=== PATIENT | male | born 1965 | race Caucasian/White ===

== ENCOUNTER 2019-09-20 18:15 | Inpatient (IN) | payer MEDICAID, SELFPAY ==
[~2019-09-20] VITALS: Ht 165.1 cm; Wt 113.4 kg
[2019-09-20 18:28] VITALS: BP 157/77
--- NOTE | 2019-09-20 20:48 | NUR ---
COVID SWAB COLLECTED AND SENT TO LAB.
--- NOTE | 2019-09-20 21:08 | NUR ---
PT O2SAT DROPPED DOWN TO 78% WHEN AMBULATING TO ER BED 07. [facility] CHOWDARY MADE AWARE.
--- NOTE | 2019-09-20 21:09 | NUR ---
PT BROUGHT TO BED 07 FOR XR.
--- NOTE | 2019-09-20 21:20 | NUR ---
PT TRANSFERRED TO BED 02.
--- NOTE | 2019-09-20 21:20 | NUR ---
54 Y/O MALE C/O COUGH, FEVER AND HEADACHE X 7 DAYS. O2 SATURATION 85%, PT PLACED ON NASAL CANNULA 5LPM. PT STATES RECENT EXPOSURE TO COVID POSITIVE PATIENT. PMH: NONE NKA
--- NOTE | 2019-09-20 21:55 | NUR ---
PT REFUSING COVID SWAB. ERMD AWARE AND AT BEDSIDE.
[2019-09-20] MEDS ORDERED: ASPI-1205 PO (22:14)
[2019-09-20 22:23] LABS: BASOPHILS % (AUTO) 0.7 % (0.0-2.0); EOSINOPHILS % (AUTO) 0.3 % (0.0-4.0); HEMATOCRIT 39.7 % (36-52); HEMOGLOBIN 12.9 g/dL (12.0-18.0); LYMPHOCYTES # (AUTO) 1.3 K/uL (2.0-11.5); MEAN CORPUSCULAR HEMOGLOBIN 29 pg (27-31); MEAN CORPUSCULAR HGB CONC 33 g/dL (33-37); MEAN CORPUSCULAR VOLUME 89.4 fL (80-94); MONOCYTES # (AUTO) 0.7 K/uL (0.8-1.0); MONOCYTES % (AUTO) 11.2 % (1.7-9.3); NEUTROPHILS # (AUTO) 3.8 K/uL (1.8-7.7); NEUTROPHILS % (AUTO) 64.8 % (42.2-75.2); PLATELET COUNT (AUTO) 359 K/uL (140-450); RED BLOOD CELL COUNT(AUTO) 4.44 MIL/uL (4.20-6.10); RED CELL DISTRIBUTION WIDTH 12.6 % (11.6-13.7); WHITE BLOOD COUNT (AUTO) 5.9 K/uL (4.8-10.8)
--- NOTE | 2019-09-20 22:27 | NUR ---
RT AT BEDSIDE.
[2019-09-20] MEDS ORDERED: ACETAMINOPHEN 325 MG TAB PO PRN (22:40)
[2019-09-20] MEDS ORDERED: HYDROcodone/APAP 7.5/325 MG 1 TAB PO PRN (22:40)
[2019-09-20] MEDS ORDERED: ONDANSETRON 4 MG/2 ML VIAL IVP PRN (22:40)
[2019-09-20 22:58] LABS: CARBON DIOXIDE 32.7 mmol/L (21-32); CREATININE 1.1 mg/dL (0.6-1.3); POTASSIUM 3.7 mmol/L (3.5-5.1); TOTAL BILIRUBIN 0.6 mg/dL (0.0-1.0)
[2019-09-20 23:17] LABS: C-REACTIVE PROTEIN QUANT 22.8 mg/dL (0.0-0.9)
--- NOTE | 2019-09-20 23:32 | NUR ---
URINE TAKEN TO LAB AT THIS TIME.
[2019-09-20 23:41] LABS: FREE T4 (FREE THYROXINE) 1.09 ng/dL (0.76-1.46); PHOSPHORUS 4.2 mg/dL (2.5-4.9); THYROID STIMULATING HORMONE 3.33 uIU/mL (0.34-3.74)
[2019-09-20 23:52] LABS: BILIRUBIN,URINE NEGATIVE (NEGATIVE); BLOOD, URINE TRACE-I (NEGATIVE); LEUKOCYTE ESTERASE ,URINE NEGATIVE (NEGATIVE); NITRITE, URINE NEGATIVE (NEGATIVE); UGLUCOSE NEGATIVE (NEGATIVE)
[2019-09-20 23:55] LABS: APPEARANCE,URINE YELLOW (CLEAR); COLOR,URINE CLEAR (YELLOW)
[2019-09-21] LABS: BARBITURATE, URINE NEGATIVE ng/ml (NEG <=200); BENZODIAZEPINE, URINE NEGATIVE ng/mL (NEG <=200); CANNABINOID, URINE NEGATIVE ng/mL (NEG <=50); COCAINE, URINE NEGATIVE ng/mL (NEG <=300); OPIATE, URINE NEGATIVE ng/mL (NEG <=2000); PHENCYCLIDINE SCREEN,URINE NEGATIVE ng/mL (NEG <=25)
--- NOTE | 2019-09-21 00:30 | NUR ---
PT LAYING IN BED COMFORTABLY. NO RESP DISTRESS NOTED. EQUAL CHEST RISE AND FALL.
--- NOTE | 2019-09-21 01:40 | NUR ---
PT LAYING IN BED COMFORTABLY. NO RESP DISTRESS NOTED. EQUAL CHEST RISE AND FALL.
[2019-09-21 01:58] LABS: LACTATE DEHYDROGENASE 414 U/L (85-227)
--- NOTE | 2019-09-21 03:58 | NUR ---
PT LAYING IN BED COMFORTABLY. NO RESP DISTRESS NOTED. EQUAL CHEST RISE AND FALL. ON 5 L NASAL CANNULA. O2 SATURATION 97%.
--- NOTE | 2019-09-21 05:30 | NUR ---
PT REQUESTING FOR WATER. PER CONCHA OKAY TO GIVE. WATER PROVIDED. PT TOLERATED WELL.
--- NOTE | 2019-09-21 06:40 | NUR ---
PT LAYING IN BED COMFORTABLY. NO RESP DISTRESS NOTED. EQUAL CHEST RISE AND FALL. ON 5 L NASAL CANNULA. O2 SATURATION 94%
--- NOTE | 2019-09-21 07:10 | NUR ---
PATIENT WHEELED TO FLOOR BY PERSONAL PROPERTY ASSESSOR. PATIENT AMBULATED TO BED ON STEADY GAIT WITH STANDBY ASSIST. PATIENT O2 SATURATION 95% ON 5L O2 VIA NC. NO S/S OF SOB OR DISTRESS NOTED. PT DENIES PAIN. ORIENTED PATIENT TO FLOOR BATHROOM, CALL LIGHT, AND TV. UPDATED BOARD. VERBALIZED PLAN OF CARE WITH PATIENT, HE VERBALIZED UNDERSTANDING. PT DX PNA, R/O COVID, DROPLET PRECAUTIONS IN PLACE, CALL LIGHT WITHIN REACH, WILL CONTINUE TO MONITOR PATIENT.
--- NOTE | 2019-09-21 07:10 | NUR ---
Patient will be admitted to care of DR. LESLIE. Admited to TELE. Will go to room 116. Belongings list completed. Report to [facility] L[facility].
--- NOTE | 2019-09-21 07:21 | NUR ---
PATIENT HAS BEEN SCREENED AND CATEGORIZED MODERATE NUTRITION RISK. PATIENT WILL BE SEEN WITHIN 3-5 DAYS OF ADMISSION. 09/23/19-09/25/19 GAVIN BURTON MS, RDN
[2019-09-21 07:30] VITALS: BP 125/61
[2019-09-21 08:55] LABS: BASOPHILS % (AUTO) 0.4 % (0.0-2.0); EOSINOPHILS % (AUTO) 0.6 % (0.0-4.0); HEMATOCRIT 40.5 % (36-52); HEMOGLOBIN 13.5 g/dL (12.0-18.0); LYMPHOCYTES # (AUTO) 1.2 K/uL (2.0-11.5); LYMPHOCYTES % (AUTO) 18.1 % (20.5-51.1); MEAN CORPUSCULAR HEMOGLOBIN 30 pg (27-31); MEAN CORPUSCULAR HGB CONC 33 g/dL (33-37); MEAN CORPUSCULAR VOLUME 89.7 fL (80-94); MONOCYTES # (AUTO) 0.5 K/uL (0.8-1.0); MONOCYTES % (AUTO) 8.4 % (1.7-9.3); NEUTROPHILS # (AUTO) 4.8 K/uL (1.8-7.7); NEUTROPHILS % (AUTO) 72.5 % (42.2-75.2); PLATELET COUNT (AUTO) 390 K/uL (140-450); RED BLOOD CELL COUNT(AUTO) 4.51 MIL/uL (4.20-6.10); RED CELL DISTRIBUTION WIDTH 12.6 % (11.6-13.7); WHITE BLOOD COUNT (AUTO) 6.6 K/uL (4.8-10.8)
[2019-09-21] MEDS ORDERED: DOCUSATE SODIUM 100 MG GELCAP PO SCH (09:00)
[2019-09-21 09:39] LABS: CARBON DIOXIDE 32.9 mmol/L (21-32); POTASSIUM 3.9 mmol/L (3.5-5.1)
[2019-09-21 09:46] LABS: CHOL/HDL RATIO 5.9 (1-4.5)
[2019-09-21] MEDS ORDERED: ONDANSETRON 4 MG/2 ML VIAL IVP PRN (09:55)
[2019-09-21] MEDS ORDERED: LORazepam 2 MG/ML VIAL IVP PRN (09:55)
[2019-09-21] MEDS ORDERED: POTASSIUM CHLORIDE 10 MEQ TABER PO PRN (09:55)
[2019-09-21] MEDS ORDERED: MORPHINE SULFATE 2 MG/ML SYR IVP PRN (09:55)
[2019-09-21] MEDS ORDERED: ACETAMINOPHEN 325 MG TAB PO PRN (09:55)
[2019-09-21] MEDS ORDERED: DOCUSATE SODIUM 100 MG GELCAP PO PRN (09:55)
[2019-09-21] MEDS ORDERED: MAG SULF 2000 MG/WATER PREMIX 50 ML IV PRN (09:55)
[2019-09-21] MEDS ORDERED: ZOLPIDEM 10 MG TAB PO PRN (09:55)
[2019-09-21] MEDS: CHOLECALCIFEROL 1,000 IU TAB PO SCH (10:06)
[2019-09-21] MEDS: ZINC SULF 220 MG CAP PO SCH (10:06)
[2019-09-21] MEDS: DEXAMETHASONE 4 MG TAB PO SCH (10:06)
[2019-09-21] MEDS: ASCORBIC ACID 500 MG TAB PO SCH (10:07)
[2019-09-21] MEDS: ENOXAPARIN 80 MG/0.8 ML SYR SUBQ SCH (10:11)
--- NOTE | 2019-09-21 10:11 | NUR ---
ORDERED MEDICATIONS GIVEN. PATIENT TOLERATED THEM WELL. PATIENT HAS NO COMPLAINTS AT THIS TIME. WILL CONTINUE TO MONITOR PATIENT.
[2019-09-21 10:34] LABS: MAGNESIUM 2.1 mg/dL (1.8-2.4); PHOSPHORUS 4.4 mg/dL (2.5-4.9)
[2019-09-21 11:30] VITALS: BP 120/64
--- NOTE | 2019-09-21 14:35 | NUR ---
PATIENT MOVED TO ROOM 106B FROM 116, PATIENT TOOK ALL HIS BELONGINGS WITH HIM. PATIENT IN STABLE CONDITION. ORIENTED HIM TO NEW ROOM, PATIENT HAD NO COMPLAINTS.
--- NOTE | 2019-09-21 15:10 | NUR ---
PATIENT O2 SATURATION 95% ON 5L O2 VIA NC. PATIENT AGREEABLE TO WEANING. O2 DECREASED TO 4L, O2 SATURATION 93-94% AT THIS TIME. PT HAS NO COMPLAINTS OF SOB OR DISTRESS. WILL CONTINUE TO MONITOR PATIENT.
[2019-09-21 15:15] VITALS: BP 127/68
--- NOTE | 2019-09-21 16:05 | NUR ---
PATIENT O2 SATURATION 94% ON 4L O2 VIA NC. PATIENT AGREEABLE TO WEANING. O2 DECREASED TO 3L, O2 SATURATION 93-94% AT THIS TIME. PT HAS NO COMPLAINTS OF SOB OR DISTRESS. WILL CONTINUE TO MONITOR PATIENT.
[2019-09-21 19:49] VITALS: BP 141/72
--- NOTE | 2019-09-21 19:53 | NUR ---
RECEIVED PATIENT ALERT, AWAKE, ORIENTED, ABLE TO MAKE NEEDS KNOWN, SKIN WARM TO TOUCH RESP. EVEN AND UNLABORED, ON 5LNC O2 SAT 92, PATIENT WATCHING TV AT THIS TIME, HEPLOCK ON LEFT WRIST, SKIN INTACT, CALL LIGHT WITHIN EASY REACH.
--- NOTE | 2019-09-21 20:02 | NUR ---
WARM WATER GIVEN TO THE PATIENT AND INCENTIVE SPIROMETER, PATIENT COOPERATIVE, WITH SLIGHT DRY COUGH, PATIENT TOLERATE DOING HIS INCENTIVE SPIROMETER, WILL CHECK PT AGAIN LATER.
--- NOTE | 2019-09-21 23:24 | NUR ---
PATIENT SLEEPING, NO URINE AVAILABLE FOR COLLECTION AT THIS TIME, WILL CHECK AGAIN LATER.
[2019-09-22] VITALS (7 sets, daily range): BP systolic 112–147; BP diastolic 57–83
--- NOTE | 2019-09-22 01:58 | NUR ---
PATIENT SLEEPING NO UNUSUAL OBSERVATION NOTED.
--- NOTE | 2019-09-22 03:01 | NUR ---
PATIENT SLEEPING, NO SOB NOTED, O2 AT 3L/MIN , WILL CHECK VITAL SIGN LATER.
--- NOTE | 2019-09-22 04:59 | NUR ---
PATIENT AWAKE, CLAIMED I SLEEP GOOD, ON OXYGEN AT 4L/NC, O2 SAT 92, NO COUGHING NOTED.
--- NOTE | 2019-09-22 05:19 | NUR ---
PATIENT , AWAKE ORIENTED, ASSISTED PT, HE REQUESTED TO WASH HIS MOUTH AND PT ASK FOR PILLOW, O2 SAT 95, 3L/NC,
--- NOTE | 2019-09-22 06:29 | NUR ---
UNABLE TO WEIGH PT, NO BUILT IN SCALE ON THE BED
[2019-09-22 06:44] LABS: BASOPHILS % (AUTO) 0.5 % (0.0-2.0); HEMATOCRIT 41.7 % (36-52); LYMPHOCYTES # (AUTO) 1.1 K/uL (2.0-11.5); LYMPHOCYTES % (AUTO) 14.7 % (20.5-51.1); MEAN CORPUSCULAR HEMOGLOBIN 30 pg (27-31); MEAN CORPUSCULAR HGB CONC 34 g/dL (33-37); MEAN CORPUSCULAR VOLUME 89.7 fL (80-94); MONOCYTES # (AUTO) 0.8 K/uL (0.8-1.0); NEUTROPHILS # (AUTO) 5.3 K/uL (1.8-7.7); NEUTROPHILS % (AUTO) 73.8 % (42.2-75.2); PLATELET COUNT (AUTO) 444 K/uL (140-450); RED BLOOD CELL COUNT(AUTO) 4.65 MIL/uL (4.20-6.10); RED CELL DISTRIBUTION WIDTH 12.7 % (11.6-13.7); WHITE BLOOD COUNT (AUTO) 7.2 K/uL (4.8-10.8)
[2019-09-22 07:03] LABS: CARBON DIOXIDE 32.3 mmol/L (21-32); CREATININE 0.8 mg/dL (0.6-1.3); POTASSIUM 4.3 mmol/L (3.5-5.1)
--- NOTE | 2019-09-22 07:05 | NUR ---
RECEIVED REPORT FROM NIGHT NURSE FOR CONTINUITY OF CARE, PT IS STABLE, PT AAOX4, OCCITAN SPEAKING, PT IS ON 4L NASAL CANNULA OXYGEN, PT HAS LEFT WRIST 20G SALINE LOCK, BED IN LOW POSITION, SAFETY MEASURES IN PLACE, CALL LIGHT WITHIN REACH, ALL NEEDS MET, WILL CONTINUE TO MONITOR.
[2019-09-22] MEDS: ENOXAPARIN 80 MG/0.8 ML SYR SUBQ SCH (08:34)
[2019-09-22] MEDS: ZINC SULF 220 MG CAP PO SCH (08:36)
[2019-09-22] MEDS: AZITHROMYCIN 250 MG TAB PO SCH (08:36)
[2019-09-22] MEDS: ASCORBIC ACID 500 MG TAB PO SCH (08:37)
[2019-09-22] MEDS: CHOLECALCIFEROL 1,000 IU TAB PO SCH (08:37)
[2019-09-22] MEDS: DEXAMETHASONE 4 MG TAB PO SCH (08:38)
--- NOTE | 2019-09-22 08:45 | NUR ---
ADMINISTERED SCHEDULED MEDICATION, MEDICATION EDUCATION GIVEN, PT VERBALIZED UNDERSTANDING, PT TOLERATED MEDICATION WELL, PT IS STABLE, RESPIRATIONS ARE EVEN AND UNLABORED ON 4L NASAL CANNULA, CALL LIGHT WITHIN REACH.
--- NOTE | 2019-09-22 11:30 | NUR ---
PT SITTING BY EDGE OF BED, PT IS TALKING ON PHONE, PT IS STABLE, NO SIGNS OF DISTRESS, CALL LIGHT WITHIN REACH.
--- NOTE | 2019-09-22 13:30 | NUR ---
PT SITTING IN BED WATCHING TV, NO SIGNS OF DISTRESS NOTED, CALL LIGHT WITHIN REACH.
--- NOTE | 2019-09-22 15:00 | NUR ---
PT IS SITTING IN BED, NO SIGNS OF DISTRESS NOTED, CALL LIGHT WITHIN REACH.
--- NOTE | 2019-09-22 17:30 | NUR ---
PT SITTING IN BED, NO SIGNS OF DISTRESS, RESPIRATIONS ARE EVEN AND UNLABORED ON 4LITER OXYGEN VIA NASAL CANNULA, CALL LIGHT WITHIN REACH.
--- NOTE | 2019-09-22 19:30 | NUR ---
ENDORSE PT TO NIGHT NURSE FOR CONTINUITY OF CARE, PT IS STABLE
--- NOTE | 2019-09-22 19:33 | NUR ---
RECEIVED PT ALERT, AWAKE, ORIENTED, TALKING TO FAMILY IN THE PHONE, SKIN WARM TO TOUCH RESP. EVEN AND UNLABORED, NO DISTRESS NOTED, ON O2 AT 4L/MIN WELL TOLERATED.
--- NOTE | 2019-09-22 21:34 | NUR ---
PATIENT PUT TO BED, SPONGE BATH GIVEN BEFORE, O2 SAT 91, ON OXYGEN AT 4L
[2019-09-22 21:36] LABS: FERRITIN 508 ng/mL (30 - 400); LACTATE DEHYDROGENASE 327 IU/L (0-214)
--- NOTE | 2019-09-22 23:36 | NUR ---
PT AWAKE, CLAIMED I WORRY ABOUT MY FAMILY, ENCOURAGED TO VERBALIZED FEELINGS, WARM MILK GIVEN AND VITALS SIGN OBTAINED.
--- NOTE | 2019-09-23 01:51 | NUR ---
PT SLEEPING AT THIS TIME IN PRONE POSITION, O2 AT 3L/MIN, SAT 96
[2019-09-23 03:24] VITALS: BP 143/80
--- NOTE | 2019-09-23 03:25 | NUR ---
PT ASSISTED TO THE BATHROOM, PT REMOVED THE OXYGEN, NOTICED O2 SAT WENT DOWN TO 83, PUT BACK THE OXYGEN AGAIN, O2 SAT WENT UP
--- NOTE | 2019-09-23 04:51 | NUR ---
PATIENT SLEEPING IN PRONE POSITION, HE ACCIDENTALLY REMOVED HIS OXYGEN, RECHECK O2 SAT 84, PUT BACK THE OXYGEN AT 3L/MIN PATIENT O2 SAT WENT BACK UP TO 95
[2019-09-23 06:38] LABS: BASOPHILS # (AUTO) 0.1 K/uL (0.00-0.22); BASOPHILS % (AUTO) 0.7 % (0.0-2.0); EOSINOPHILS % (AUTO) 0.1 % (0.0-4.0); HEMATOCRIT 41.6 % (36-52); LYMPHOCYTES # (AUTO) 1.4 K/uL (2.0-11.5); LYMPHOCYTES % (AUTO) 13.3 % (20.5-51.1); MEAN CORPUSCULAR HEMOGLOBIN 30 pg (27-31); MEAN CORPUSCULAR HGB CONC 34 g/dL (33-37); MONOCYTES # (AUTO) 1.1 K/uL (0.8-1.0); MONOCYTES % (AUTO) 10.3 % (1.7-9.3); NEUTROPHILS % (AUTO) 75.6 % (42.2-75.2); PLATELET COUNT (AUTO) 540 K/uL (140-450); RED BLOOD CELL COUNT(AUTO) 4.68 MIL/uL (4.20-6.10); RED CELL DISTRIBUTION WIDTH 12.2 % (11.6-13.7); WHITE BLOOD COUNT (AUTO) 10.5 K/uL (4.8-10.8)
[2019-09-23 06:55] LABS: ANION GAP 6.7 (8-16); CARBON DIOXIDE 35.7 mmol/L (21-32); POTASSIUM 4.4 mmol/L (3.5-5.1)
--- NOTE | 2019-09-23 07:05 | NUR ---
PT SLEEPING, O2 SAT 95, WILL ENDORSED TO INCOMING SHIFT
--- NOTE | 2019-09-23 07:06 | NUR ---
RECEIVED REPORT FROM AUTOMATED EQUIPMENT ENGINEER TECHNICIAN NURSE. PATIENT LYING ZIGGY IN BED, SLEEPING, AROUSBLE BY VOICE. NO DISTRESS NOTED. ON O2 2L/MIN VIA NC. SKIN INTACT. AAOX3, CALM, COOPERATIVE, SKIN COLOR APPROPRIATE TO ETHNICITY, WARM TO TOUCH. IV SITE INTACT, PATENT, AND INFUSING IVF PER MD ORDERS. REVIEWED PLAN OF CARE WITH PATIENT. PATIENT VERBALIZED UNDERSTANDING. SAFETY MEASURES IN PLACE, CALL LIGHT WITHIN REACH. WILL CONTINUE TO MONITOR. Addendum: 09/23/19 at 0844 by Fidel Varma RN ON O2 3L/MIN VIA NC.
[2019-09-23 08:00] VITALS: BP 137/77
[2019-09-23] MEDS: CHOLECALCIFEROL 1,000 IU TAB PO SCH (09:15)
[2019-09-23] MEDS: DEXAMETHASONE 4 MG TAB PO SCH (09:15)
[2019-09-23] MEDS: AZITHROMYCIN 250 MG TAB PO SCH (09:15)
[2019-09-23] MEDS: ASCORBIC ACID 500 MG TAB PO SCH (09:15)
[2019-09-23] MEDS: ZINC SULF 220 MG CAP PO SCH (09:16)
[2019-09-23] MEDS: ENOXAPARIN 80 MG/0.8 ML SYR SUBQ SCH (09:16)
--- NOTE | 2019-09-23 09:24 | NUR ---
SCHEDULED MEDICATIONS DUE GIVEN. WILL CONTINUE TO MONITOR.
[2019-09-23] MEDS ORDERED: VITD1000 PO (09:26)
[2019-09-23] MEDS ORDERED: APIX2.5 PO (09:26)
[2019-09-23] MEDS ORDERED: DEC4 PO (09:26)
[2019-09-23] MEDS ORDERED: VITC500 PO (09:26)
[2019-09-23] MEDS ORDERED: ZINC220C28 PO (09:26)
[2019-09-23] MEDS ORDERED: AZIT250T11 PO (09:26)
--- NOTE | 2019-09-23 11:12 | NUR ---
FAXED PATIENTS CLINICALS TO JOSE AT [facility] [phone], FAX [phone]. FOLLOWED UP WITH JOSE SHE RECEIVED THE FAX AND HER COORDINATOR IS WORKING ON THE ORDER, HOWEVER SHE STATED THAT SHE IS VERY BUSY AND IT MAY TAKE A WHILE. I WILL FOLLOW UP. Addendum: 09/23/19 at 1246 by Elana Hammer CM FOLLOWED UP WITH JOSE AT [facility] SHE STATED SHE SPOKE WITH BOWEN AT [facility] AND PROVIDED AUTH FOR HOME 02. FOLLOWED UP WITH BOWEN [phone] HE SPOKE WITH THE FAMILY REGARDING THE HOME OXYGEN, HE STATED THAT ALL OF THE ITEMS WILL BE DROPPED OFF TO THE FAMILIES HOME AND THEN THEY WILL BRING IT TO THE HOSPITAL WITH THEM ONCE PATIENT IS READY FOR DISCHARGE. THE TRAIN DRIVER WILL BE EN ROUTE AROUND 3:30-4:30 PM Addendum: 09/23/19 at 1248 by Elana Hammer CM NOTIFIED [facility] MORRELL OF ETA OF THE HOME OXYGEN.
--- NOTE | 2019-09-23 11:12 | NUR ---
INPATIENT SERVICES DIRECTOR NOTE: Patient's Orientation Person Situation Place Time Information Provided By LES ALBARRAN Comments SW WAS UNABLE TO MEET PATIENT AT BEDSIDE DUE TO MEDICAL CONDITION. Experimental Rocket Sled Mechanic, Realtionship and Phone Number LES ALBARRAN DAUGHTER [phone] [employer] Power of Solar Photovoltaic Installer No Does Patient Have a POLST No Identifying Problems No Social Work Triggers Is A Social Work Consult Needed No Mandate Report Filed No Explanation Of Identifying Problems PATIENT IS A 54-YEAR-OLD MALE ADMITTED FOR PNEUMONIA AND COVID R/O. PATIENT HAS NO PERTINENT PMHX. Admitted From Home Pre-Admission Level Of Functioning Status Independent/Ambulatory Prior Resources/Services Used In Last 12 Months No Prior Resources Used Prior DME No Prior DME Used Living Situation Lives With Family House Patient Had Caregiver No Home Support No Caregiver Issues Financial Issues No Known Financial Issue Referral To The Financial Counselor Needed No Factors/Needs No D/C Needs Identified Pt/Rep Participated In Discharge Plan Yes Patient/Family Agress With Discharge Plan Yes Discharge Plan Comments TENTATIVE DISCHARGE PLAN IS FOR PATIENT TO RETURN HOME. DC Plan Status Initiated
[2019-09-23 12:00] VITALS: BP 133/61
--- NOTE | 2019-09-23 15:00 | NUR ---
DISCHARGE INSTRUCTIONS PROVIDED TO PATIENT. INSTRUCTIONS ON FOLLOW-UP WITH PCP, NEW/CHANGED MEDICATIONS REGIMEN AND SIDE EFFECTS, COVID POSITIVE SELF-ISOLATION AND MANAGEMENT AT HOME. ANSWERED ALL OF PATIENT'S QUESTIONS REGARDING DISCHARGE. PER PATIENT'S DAUGHTER JHONNY, OXYGEN TANKS ARE ALREADY AT HOME. PATIENT'S DAUGHTER GOING TO PICKUP PATIENT ABOUT 1600. PATIENT TO GET DRESSED AND AWAITING FOR RIDE HOME. WILL CONTINUE TO MONITOR.
--- NOTE | 2019-09-23 16:24 | NUR ---
PATIENT'S DAUGHTER AT [facility] READY TO TAKE PATIENT HOME. IV SITE REMOVED WITH MINIMAL BLOOD AND LUMEN COMPLETELY INTACT. ID BANDS REMOVED. ESCORTED PATIENT DOWN TO [facility] VIA WHEELCHAIR. PATIENT DISCHARGED AT THIS TIME TO HOME IN STABLE CONDITION.
[2019-09-26 06:07] LABS: LD2 FRACTION 31 % (25-40); LD5 FRACTION 11 % (4-20)
== END 2019-09-23 16:20 | disposition home or self-care (01) | DRG 137 ==
LOC: MED 18:15 → EEVIPCON 18:15 → MFCC 22:36 → MMU 09-21 03:11 → MTU 09-21 04:32
PROVIDERS: ADMIT General Practice; ATTEND General Practice
DX: U07.1 COVID-19 (principal); J96.01 Acute respiratory failure with hypoxia; J12.89 Other viral pneumonia; E66.9 Obesity, unspecified; Z68.41 Body mass index [BMI] 40.0-44.9, adult; Z71.3 Dietary counseling and surveillance
CPT/HCPCS: 36415; 36600; 71045; 80048; 80053; 80305; 81003; 82150; 82550; 82728; 83036; 83605; 83615; 83625; 83690; 83735; 83880; 84100; 84439; 84443; 84484; 85025; 85379; 85384; 85610; 85651; 85730; 86140; 87040; 87081; 87086; 87804; 93005; 99291; J1650; Q0092; U0003-CS